=== PATIENT | male | born 1960 | race Caucasian/White ===

== ENCOUNTER 2019-04-20 13:01 | Outpatient (CLI) | payer MEDICARE, MEDICAID, SELFPAY ==
[2019-04-20 13:15] VITALS: BP 134/82; PULSE 99; RESP 20; TEMP 37.1; O2SAT 91
[2019-04-20 14:00] VITALS: BP 136/95; PULSE 98; RESP 13; O2SAT 96
--- NOTE | 2019-04-20 14:07 | PDOC.PAIN_ITS ---
Pain Clinic Procedure Note Current Active Problems Problem Status Onset Muscle pain Acute ULTRASOUND GUIDED right Quadratus Lumborum trigger point INJECTIONS Pre-Procedural Evaluation: DENNIS RODRIGUEZ has been [facility] for an Ultrasound Guided right quadratus lumborum trigger point injection for a chief complaint of right sided low back pain. Pre-procedure Pain Score 6/10 Patient was interviewed and the medical record reviewed. There were no medical, pharmacologic, radiographic, or other structural contraindications to preforming an ultrasound guided injection. Risks and expected side effects as well as potential benefits of the procedure were reviewed. The patient consent form was signed and witnessed. Standard time-out procedure was performed. The use of direct ultrasound visualization of the needle (rather than a non- guided injection) was required to increase patient safety by excluding inadvertent intramuscular, intratendinous, or intraneural needle placement and minimizing bleeding by avoiding osteochondral or vascular injury from the needle. Additionally, the increased accuracy of placement may increase clinical effectiveness and will allow higher diagnostic specificity when evaluating effe ctiveness of this injection. Procedure Description: The patient was placed in the prone position and automated blood pressure cuff and pulse oximeter applied for monitoring during the procedure and recorded in the medical record. Pre-injection ultrasound scanning of the area of interest was performed using linear transducer, identifying relevant anatomy, landmarks, and neurovascular structures allowing for optimal needle path. The site was then prepared in the usual sterile fashion, using thorough Chlorhexadine preparation of the skin and sterile draping. The same ultrasound transducer was then passed into the sterile field using sterile probe cover and sterile ultrasound gel. The injection target was again visualized. 1Skin and subcutaneous tissues were anesthetized with mL of 1% Lidocaine. A 22 guage needle 3.5 inch needle was placed under live ultrasound guidance, using an in-plane approach, to the target area. After visualization of the needle tip at the target area, a mixture of 2 mL 1% Lidocaine and 1 mL Depomedrol (40 mg/cc), totaling 5 mL of injectate was delivered after negative aspiration for blood. Ultrasound images were captured and stored for documentation purposes. Post-procedure Pain Score: 5/10 Vital signs were stable throughout the procedure and were as recorded in the docflowsheet by the nursing staff. Follow up plans and appointments were discussed with the patient.Post procedure instruction was given as documented in nursing documentation and having met discharge criteria, they were discharged from the [facility]. COMMENTS: If this procedure is helpful, it can be completed up to 3 times per 12 months.
--- NOTE | 2019-04-20 14:11 | DI.US_ITS ---
SYMPTOM/DIAGNOSIS: SPASTICITY, ULTRASOUND GUIDED INJECTION RT QUADRATUS LUMBORIUM MUSCLE ULTRASOUND GUIDED INJECTION: Dr Lee carried out an injection under ultrasound guidance. Please see procedure report for further information.
[2019-04-20] MEDS: methylPREDNISolone ACETATE 40 MG/ML VIAL IJ (14:12)
== END 2019-04-20 13:21 ==
PROVIDERS: PCP Internal Medicine; Visit Provider Preventive Medicine Occupational Medicine
DX: M79.18 Myalgia, other site (principal)
CPT/HCPCS: 20553; 76942; J1030